=== PATIENT | female | born 1955 | race Caucasian/White ===

== ENCOUNTER → 2016-04-21 | Outpatient (CLI) | payer OTHER ==
[~2016-04-21] VITALS: Ht 147.3 cm; Wt 37.0 kg
[~2016-04-21] MED LIST: ALBUTEROL17 GM IH; ALBUTEROL2.5 MG/0.5 IH; AMBIEN CR6.25 MG; AMBIEN CR6.25 MG PO; AMLODIPINE BESYL5 MG; ASPIRIN E.C.81 M1 PO; ATIVAN1 MG; ATIVAN1 MG PO; AVELOX400 MG PO; Advair HFA 115/21 IH; BEROCCA PLUS1 TABLET PO; CLARITIN10 MG PO; CYCLOBENZAPRINE 10 M; CYCLOBENZAPRINE10 MG PO; DAILY MULTIPLE1 EACH; DELTASONE10 MG PO; DELTASONE20 MG PO; DOLOPHINE HCL10 MG PO; FLEXERIL10 MG PO; FOLIC ACID1 MG PO; Feosol PO; Flonase BOTH NARES; Folvite PO; GRALISE300 MG PO; HABITROL,NICODE21 MG TD; HYDROXYZINE HCL25 MG PO; HYDROXYZINE PAM50 M1; Habitrol,Nicoderm CQ TD; LEVOFLOXACIN750 MG PO; LEXAPRO10 MG PO; LEXAPRO20 MG; LOTREL 5/101 CAPSULE PO; METHADONE H5 MG/5 ML PO; METHADONE HCL 10 MG; MOTRIN600 MG PO; MULTIVITAMIN; MULTIVITAMIN1 EAC2; Motrin PO; NORVASC10 MG PO; OMEPRAZOLE20 M2; PANTOPRAZOLE SO40 MG PO; POTASSIUM CHLO10 ME3 PO; PREDNISONE10 MG PO; PRILOSEC10 MG PO; PRILOSEC40 MG PO; PRINZIDE 20-251 EACH PO; PROAIR HFA8.5 GM; PROAIR HFA8.5 GM IH; PROTONIX40 MG PO; Prilosec PO; Proventil,Ventolin H IH; Robitussin, Organidi PO; SEROQUEL100 MG; SEROQUEL100 MG PO; SEROQUEL300 MG PO; SINEQUAN10 MG PO; SINGULAIR10 MG PO; SPIRIVA1 INHALATI IH; SYMBICORT60 INHALAT IH; Singulair PO; Symbicort 160-4.5 mc IH; THIAMINE HCL100 MG PO; TRILEPTAL300 MG PO; TRILEPTAL75 MG PO; Thiamine,Vitamin B1 PO; VENTOLIN HFA18 GM IH; VITAMIN B-1100 MG; VITAMIN D1000 INTUN PO; Vitamin D PO; Xanax PO; ZANAFLEX4 M1 PO; ZANTAC150 MG PO; ZOFRAN4 MG PO; ZOLOFT50 MG PO; ZYVOX600 MG PO
[2016-04-21 07:27] VITALS: BP 148/75
== END | disposition home or self-care (01) ==
LOC: IVINF 07:21
PROVIDERS: Internal Medicine Endocrinology, Diabetes & Metabolism
DX: R53.81 Other malaise (principal); R53.83 Other fatigue
CPT/HCPCS: 80400; 82024 90; 82533 91; 96374; J0834